=== PATIENT | female | born 1960 | race Caucasian/White ===

== ENCOUNTER 2023-06-03 11:01 | Emergency (ER) | payer BC ==
[~2023-06-03] VITALS: Ht 165.1 cm; Wt 66.7 kg
[2023-06-03] MEDS ORDERED: AMOX/CLAV 875/125MG TAB PO ONE (12:00)
[2023-06-03] MEDS ORDERED: AMOX1TAB16 PO (12:05)
[2023-06-03 12:18] VITALS: BP 132/78; PULSE 68; RESP 20; O2SAT 97
[2023-06-03] MEDS ORDERED: ACETAMINOPHEN 500 MG TABLET PO ONE (12:30)
== END 2023-06-03 12:33 | disposition home or self-care (01) ==
LOC: EDH 11:01
DX: J32.2 Chronic ethmoidal sinusitis (principal); J32.0 Chronic maxillary sinusitis; E78.00 Pure hypercholesterolemia, unspecified